=== PATIENT | female | born 1950 | race African-American/Black ===

== ENCOUNTER 2019-08-30 20:57 | Inpatient (IN) ==
[2019-08-30] MEDS ORDERED: methylPREDNISolone SOD SUC 125 MG/2 ML VIAL IV STA (22:00)
[2019-08-30] MEDS ORDERED: SODIUM CHLORIDE 0.9% 500 ML IV STA (22:00)
[2019-08-30] MEDS ORDERED: ACETAMINOPHEN 500 MG TABLET PO STA (22:00)
[2019-08-30] MEDS ORDERED: AZITHROMYCIN 250 MG TABLET PO STA (22:00)
[2019-08-30 22:15] LABS: Basophils % 0.2 % (0.0-0.8); Hematocrit 37.9 VOL% (35.7-47.0); Immature Granulocytes % 0.5 %; Immature Granulocytes Absolute 0.03 #; Lymphocytes # 0.7 10*3/uL (1.4-4.0); Lymphocytes % 11.2 % (21.3-54.2); Mean Corpuscular HGB Conc 34.3 GM/DL (32-36); Mean Corpuscular Volume 80.8 FL (87-102); Mean Platelet Volume 10.6 FL (9.6-12.0); Neutrophils % 85.1 % (38.7-73.9); Platelet Count 195 T/CUMM (130-400); Red Blood Count 4.69 MC/CUMM (3.8-5.5); Red Cell Distribution Width 14.6 % (9.3-17.3)
[2019-08-30 22:43] LABS: Lymphocytes 8 % (20-55); Platelet Estimate Normal; Segmented Neutrophils 88 % (50-85); Total Cells Counted 100
[2019-08-30] MEDS ORDERED: ONDANSETRON 4 MG/2 ML VIAL ONE (23:00)
[2019-08-30 23:20] LABS: Sedimentation Rate-Westergren 45 MM/HR (0-30)
[2019-08-30] MEDS ORDERED: ONDANSETRON 4 MG/2 ML VIAL IV STA (23:25)
[2019-08-30 23:38] LABS: Apearance,Urine Slightly Hazy (Clear); Bacteria,Urine Many /HPF (Few); Bilirubin,Urine Negative (Negative); Blood, Urine Negative (Negative); Glucose,Urine (UA) Negative (Negative); Ketones,Urine 5 mg/dL (Negative); Mucus,Urine Many /LPF (Occasional); Nitrite,Urine Negative (Negative); Protein,Urine >=500 MG/DL; RBC,Urine 4 /HPF (0-4); Squamous Epithelial Cell,Urine Occasional /HPF (0-10); Urine Color Amber (Yellow); WBC,Urine 8 /HPF (0-6)
[2019-08-31 00:15] LABS: Alanine Aminotransferase 34 U/L (13-56); Alkaline Phosphatase 51 U/L (45-117); Aspartate Amino Transferase 41 U/L (0-37); Bilirubin,Total 0.39 MG/DL (0.2-1.0); Calcium 7.9 MG/DL (8.5-10.1)
[2019-08-31 00:16] LABS: Albumin 2.6 G/DL (3.4-5.0); Amylase 62 U/L (25-115); Blood Urea Nitrogen 9 MG/DL (7-18); Estimated Glom Filtration Rate 119 ML/MIN; Glucose 123 MG/DL (74-106); Osmolality,Calculated 280.3 MOS/KG (273-304); Total Protein 7.6 G/DL (6.4-8.3)
[2019-08-31] MEDS ORDERED: POTASSIUM CHLORIDE 20 MEQ TABLET PO STA (00:22)
[2019-08-31] MEDS ORDERED: ACETAMINOPHEN 325 MG TABLET PO PRN (02:01)
[2019-08-31] MEDS ORDERED: GLUCAGON 1 MG VIAL IM PRN (02:01)
[2019-08-31] MEDS ORDERED: diphenhydrAMINE CAP 25 MG CAPSULE PO PRN (02:01)
[2019-08-31] MEDS ORDERED: ONDANSETRON 4 MG/2 ML VIAL IV PRN (02:01)
[2019-08-31] MEDS ORDERED: DEXTROSE 50% 25 GM/50 ML VIAL IV PRN (02:01)
[2019-08-31] MEDS ORDERED: hydrALAZINE 20 MG/1 ML VIAL IV PRN (02:01)
[2019-08-31] MEDS ORDERED: ALUMINUM/MAGNES/SIMETH MAX STR 30 ML UDCUP PO PRN (02:01)
[2019-08-31] MEDS ORDERED: NICOTINE 21 MG/24 HR PATCH TRANSDERM PRN (02:01)
[2019-08-31] MEDS: cefTRIAXone 1,000 MG in SYRINGE 1 EACH IV SCH (06:31)
[2019-08-31] MEDS: AZITHROMYCIN 250 MG TABLET PO SCH (09:30)
[2019-08-31] MEDS: guaiFENesin/DM ER 600-30 MG TABLET PO PRN (16:58)
[2019-09-01] MEDS: cefTRIAXone 1,000 MG in SYRINGE 1 EACH IV SCH (03:45)
[2019-09-01] MEDS: guaiFENesin/DM ER 600-30 MG TABLET PO PRN ×2 (04:08→21:01)
[2019-09-01 06:44] LABS: Hemoglobin 12.5 GM/DL (12.0-16.0); Immature Granulocytes % 0.3 %; Immature Granulocytes Absolute 0.02 #; Lymphocytes # 1.1 10*3/uL (1.4-4.0); Lymphocytes % 15.3 % (21.3-54.2); Mean Corpuscular HGB Conc 33.8 GM/DL (32-36); Mean Corpuscular Volume 81.5 FL (87-102); Mean Platelet Volume 10.9 FL (9.6-12.0); Monocytes % 4.2 % (1.7-12.7); Neutrophils % 80.2 % (38.7-73.9); Platelet Count 225 T/CUMM (130-400); Red Blood Count 4.54 MC/CUMM (3.8-5.5); Red Cell Distribution Width 14.7 % (9.3-17.3); White Blood Count 7.2 T/CUMM (4-12)
[2019-09-01 07:12] LABS: Alanine Aminotransferase 28 U/L (13-56); Albumin 2.5 G/DL (3.4-5.0); Alkaline Phosphatase 50 U/L (45-117); Aspartate Amino Transferase 27 U/L (0-37); Bilirubin,Total < 0.39 MG/DL (0.2-1.0); Blood Urea Nitrogen 11 MG/DL (7-18); Calcium 8.4 MG/DL (8.5-10.1); Estimated Glom Filtration Rate 124 ML/MIN; Glucose 99 MG/DL (74-106); Total Protein 7.3 G/DL (6.4-8.3)
[2019-09-01 07:24] LABS: Osmolality,Calculated 277.4 MOS/KG (273-304)
[2019-09-01 07:31] LABS: Anisocytosis Slight; Band Neutrophils 5 % (0-10); Hypochromasia Slight; Lymphocytes 14 % (20-55); Macrocytosis Slight; Platelet Estimate Normal; Segmented Neutrophils 75 % (50-85); Total Cells Counted 100
[2019-09-01 07:52] LABS: Sedimentation Rate-Westergren 63 MM/HR (0-30)
[2019-09-01] MEDS: AZITHROMYCIN 250 MG TABLET PO SCH (08:23)
[2019-09-01] MEDS ORDERED: ENOXAPARIN 120 MG/0.8 ML SYRINGE SUBCUT SCH (11:00)
[2019-09-02] MEDS: cefTRIAXone 1,000 MG in SYRINGE 1 EACH IV SCH (03:49)
[2019-09-02 06:07] LABS: Basophils % 0.2 % (0.0-0.8); Eosinophils % 0.2 % (0.00-10.9); Immature Granulocytes % 0.6 %; Immature Granulocytes Absolute 0.03 #; Lymphocytes # 0.9 10*3/uL (1.4-4.0); Lymphocytes % 16.7 % (21.3-54.2); Mean Corpuscular HGB Conc 34.3 GM/DL (32-36); Mean Corpuscular Volume 80.6 FL (87-102); Mean Platelet Volume 10.7 FL (9.6-12.0); Monocytes % 4.8 % (1.7-12.7); Neutrophils % 77.5 % (38.7-73.9); Platelet Count 255 T/CUMM (130-400); Red Blood Count 4.34 MC/CUMM (3.8-5.5); Red Cell Distribution Width 14.4 % (9.3-17.3); White Blood Count 5.2 T/CUMM (4-12)
[2019-09-02 06:31] LABS: Hypochromasia 1+; Platelet Estimate Adequate
[2019-09-02 06:32] LABS: Macrocytosis Slight
[2019-09-02 06:43] LABS: Albumin 2.3 G/DL (3.4-5.0); Bilirubin,Total 0.4 MG/DL (0.2-1.0); Calcium 7.8 MG/DL (8.5-10.1); Osmolality,Calculated 280.1 MOS/KG (273-304); Total Protein 6.9 G/DL (6.4-8.3)
[2019-09-02] MEDS ORDERED: POTASSIUM CHLORIDE 20 MEQ TABLET PO ONE (07:32)
[2019-09-02 07:38] LABS: Sedimentation Rate-Westergren 77 MM/HR (0-30)
[2019-09-02] MEDS: guaiFENesin/DM ER 600-30 MG TABLET PO PRN (08:37)
[2019-09-02] MEDS: AZITHROMYCIN 250 MG TABLET PO SCH (08:37)
[2019-09-02] MEDS: ENOXAPARIN 40 MG/0.4 ML SYRINGE SUBCUT SCH (08:37)
[2019-09-03] MEDS: cefTRIAXone 1,000 MG in SYRINGE 1 EACH IV SCH (03:40)
[2019-09-03 04:57] LABS: Basophils % 0.2 % (0.0-0.8); Eosinophils # 0.1 10*3/uL (0.0-0.87); Eosinophils % 1.2 % (0.00-10.9); Hematocrit 34.8 VOL% (35.7-47.0); Hemoglobin 11.9 GM/DL (12.0-16.0); Immature Granulocytes % 0.5 %; Immature Granulocytes Absolute 0.02 #; Lymphocytes % 24.3 % (21.3-54.2); Mean Corpuscular HGB Conc 34.2 GM/DL (32-36); Mean Corpuscular Volume 80.7 FL (87-102); Mean Platelet Volume 10.7 FL (9.6-12.0); Neutrophils % 64.8 % (38.7-73.9); Platelet Count 286 T/CUMM (130-400); Red Blood Count 4.31 MC/CUMM (3.8-5.5); Red Cell Distribution Width 14.4 % (9.3-17.3); White Blood Count 4.2 T/CUMM (4-12)
[2019-09-03 05:18] LABS: Albumin 2.3 G/DL (3.4-5.0); Bilirubin,Total 0.7 MG/DL (0.2-1.0); Calcium 7.9 MG/DL (8.5-10.1); Osmolality,Calculated 279.1 MOS/KG (273-304); Total Protein 6.6 G/DL (6.4-8.3)
[2019-09-03 05:22] LABS: Hypochromasia 1+; Lymphocytes 19 % (20-55); Macrocytosis Slight; Platelet Estimate Adequate; Segmented Neutrophils 76 % (50-85); Total Cells Counted 100
[2019-09-03 07:36] LABS: Sedimentation Rate-Westergren 97 MM/HR (0-30)
[2019-09-03] MEDS: ENOXAPARIN 40 MG/0.4 ML SYRINGE SUBCUT SCH (08:41)
[2019-09-03] MEDS: AZITHROMYCIN 250 MG TABLET PO SCH (08:41)
[2019-09-03] MEDS ORDERED: POTASSIUM CHLORIDE 20 MEQ TABLET PO ONE (11:00)
[2019-09-03 12:03] VITALS: BP 133/64
== END 2019-09-03 16:25 | disposition home or self-care (01) | DRG 177 ==
LOC: N.EDINP 20:57 → N.ED 20:57 → SUATTDRO 08-31 02:01 → N.EDINP 08-31 03:22 → N.2E 08-31 03:42 → SUATTDRO 09-02 06:36
PROVIDERS: ADMIT Internal Medicine; ATTEND Internal Medicine